=== PATIENT | male | born 1935 | race Caucasian/White ===

== ENCOUNTER → 2018-01-06 | Outpatient (CLI) | payer MEDICARE, BC ==
[2018-01-06 13:08] LABS: INTERNATIONAL NORMALIZED RATIO 3.3 RATIO; PROTHROMBIN TIME - PATIENT 33.4 SEC (9.8-11.6)
== END ==
LOC: CLAB 12:22
DX: I48.91 Unspecified atrial fibrillation (principal); Z79.01 Long term (current) use of anticoagulants
CPT/HCPCS: 36415; 85610

== ENCOUNTER → 2018-01-22 | Outpatient (CLI) | payer MEDICARE, BC ==
[2018-01-22 12:18] LABS: INTERNATIONAL NORMALIZED RATIO 2.3 RATIO; PROTHROMBIN TIME - PATIENT 23.6 SEC (9.8-11.6)
== END ==
LOC: CLAB 11:06
DX: I48.91 Unspecified atrial fibrillation (principal); Z79.01 Long term (current) use of anticoagulants
CPT/HCPCS: 36415; 85610

== ENCOUNTER → 2018-02-18 | Outpatient (CLI) | payer MEDICARE, BC ==
[2018-02-18 15:26] LABS: INTERNATIONAL NORMALIZED RATIO 2.9 RATIO; PROTHROMBIN TIME - PATIENT 29.4 SEC (9.8-11.6)
== END ==
LOC: CLAB 14:37
DX: I48.91 Unspecified atrial fibrillation (principal); Z79.01 Long term (current) use of anticoagulants
CPT/HCPCS: 36415; 85610